=== PATIENT | female | born 1980 | race Caucasian/White ===

== ENCOUNTER → 2017-11-03 | Outpatient (CLI) | payer BC ==
[2017-11-03 14:21] LABS: Basophils % (A) 1 %; Eosinophils # (A) 0.2 k/uL (0-0.7); Eosinophils % (A) 2 %; HCT 40.8 % (34.0-46.0); HGB 13.6 gm/dL (11.4-16.0); Lymphocytes # (A) 1.8 k/uL (1.0-4.8); Lymphocytes % (A) 26 %; MCH 29.3 pg (25.0-35.0); MCHC 33.4 g/dL (31.0-37.0); MCV 87.9 fL (80.0-100.0); Mean Platelet Volume 7.3; Monocytes # (A) 0.3 k/uL (0-1.0); Monocytes % (A) 4 %; Neutrophils # (A) 4.6 k/uL (1.3-7.7); Neutrophils % (A) 66 %; Platelet Count 200 k/uL (150-450); RBC 4.64 m/uL (3.80-5.40); RDW 12.5 % (11.5-15.5); WBC 6.9 k/uL (3.8-10.6)
[2017-11-03 14:35] LABS: ALT 27 U/L (9-52); AST 20 U/L (14-36); Albumin 4.5 g/dL (3.5-5.0); Alkaline Phosphatase 45 U/L (38-126); Anion Gap 11 mmol/L; Blood Urea Nitrogen 17 mg/dL (7-17); Calcium 9.3 mg/dL (8.4-10.2); Carbon Dioxide 26 mmol/L (22-30); Chloride 103 mmol/L (98-107); Cholesterol 182 mg/dL (<200); Glucose 88 mg/dL (74-99); HDL Cholesterol 76 mg/dL (40-60); LDL Cholesterol,Calculated 98 mg/dL (0-99); Sodium 140 mmol/L (137-145); Total Bilirubin 0.4 mg/dL (0.2-1.3); Total Protein 6.8 g/dL (6.3-8.2); Triglycerides 40 mg/dL (<150)
== END | disposition home or self-care (01) ==
LOC: LABWHC1 14:07
PROVIDERS: ATTEND Nurse Practitioner Primary Care
DX: Z00.00 Encounter for general adult medical examination without abnormal findings (principal)
CPT/HCPCS: 36415; 80053; 80061; 82306; 84443; 85025

== ENCOUNTER → 2020-12-25 | Outpatient (CLI) | payer BC ==
--- NOTE | 2020-12-25 19:16 | MR ---
EXAMINATION TYPE: MR brain wo/w con DATE OF EXAM: 12/25/2020 COMPARISON: None HISTORY: No prior, [place] and double vision CONTRAST: Standard multiplanar, multisequence MRI departmental protocol utilizing 7ml mL intravenous Gadavist g adolinium contrast. Ventricles have normal size. There is no mass effect nor midline shift. There is no sign of intracran ial hemorrhage. There is no evidence of intracranial hemorrhage. Corpus callosum appears normal. Sella turcica is nor mal. Brainstem is intact. Diffusion images show no evidence of an acute infarct. Yee-white matter structures have fairly josr l signal pattern. There is no evidence of cerebral edema. Contrast images show no pathologic enhancement. There is normal enhancement of the venous sinuses. Op tic chiasm appears normal. Pituitary stalk is in the midline. There is no evidence of orbital mass. IMPRESSION: Negative MR scan of the brain.
== END | disposition home or self-care (01) ==
LOC: RADMRIMAIN 17:03
PROVIDERS: ATTEND Ophthalmology
DX: H53.2 Diplopia (principal); R51.9 Headache, unspecified
CPT/HCPCS: 70553; A9585

== ENCOUNTER → 2022-11-05 | Outpatient (CLI) | payer BC ==
--- NOTE | 2022-11-06 09:01 | MM ---
Reason for Exam: Screening (asymptomatic). Baseline mammogram. Patient History: Menarche at age 15. First Full-Term at age 24. Premenopausal. Paternal aunt had breast cancer. Mother had breast cancer at or over age 50. Last menstrual period: 10/17/2022 Risk Values: Judy 5 year model risk: 1.1%. NCI Lifetime model risk: 18.3%. Prior Study Comparison: Patient's first Mammogram. Tissue Density: The breast tissue is heterogeneously dense. This may lower the sensitivity of mammography. Findings: Analyzed By CAD. There is no suspicious group of microcalcifications or new suspicious mass in either breast. Asymmetric density upper central left breast 6.3 cm from the nipple. Additional views recommended. Overall Assessment: Incomplete: need additional imaging evaluation, BI-RAD 0 Management: Diagnostic Mammogram of the left breast. . Patient should continue monthly self-breast exams. A clinical breast exam by your physician is recommended on an annual basis. This exam should not preclude additional follow-up of suspicious palpable abnormalities. Note on Judy scores and lifetime risk: 1. A Judy score greater than 3% is considered moderate risk. If this is the case, consider specialist referral to assess eligibility for a risk reducing agent. 2. If overall lifetime risk for the development of breast cancer is 20% or higher, the patient may qualify for future screening with alternating mammogram and breast MRI. Electronically signed and approved by: Scar Temple M.D. Radiologis
== END | disposition home or self-care (01) ==
LOC: RADMAMWWP 09:56
PROVIDERS: ATTEND Family Medicine
DX: Z12.31 Encounter for screening mammogram for malignant neoplasm of breast (principal); Z80.3 Family history of malignant neoplasm of breast
CPT/HCPCS: 77063; 77067

== ENCOUNTER → 2022-11-07 | Outpatient (CLI) | payer BC ==
--- NOTE | 2022-11-07 10:20 | MM ---
Reason for Exam: Additional evaluation requested from abnormal screening. Last screening mammogram was performed less than 1 month ago. Patient History: Menarche at age 15. First Full-Term at age 24. Premenopausal. Patient has history of breast feeding. Paternal aunt had breast cancer. Paternal aunt had ovarian cancer at or over age 50. Mother had breast cancer at or over age 50. Risk Values: Judy 5 year model risk: 1.1%. NCI Lifetime model risk: 18.3%. Prior Study Comparison: 11/05/2022 Bilateral MG 3D screening mammo w/cad, [facility]. Tissue Density: Left: The breast tissue is heterogeneously dense. This may lower the sensitivity of mammography. Findings: Analyzed By CAD. Density in question appears less conspicuous on spot compression imaging. Precautionary six-month follow-up is recommended of the left breast. Overall Assessment: Probably benign, BI-RAD 3 Management: Diagnostic Mammogram of the left breast. . Results were given to the patient verbally at the time of exam. Patient should continue monthly self-breast exams. A clinical breast exam by your physician is recommended on an annual basis. This exam should not preclude additional follow-up of suspicious palpable abnormalities. Note on Judy scores and lifetime risk: 1. A Judy score greater than 3% is considered moderate risk. If this is the case, consider specialist referral to assess eligibility for a risk reducing agent. 2. If overall lifetime risk for the development of breast cancer is 20% or higher, the patient may qualify for future screening with alternating mammogram and breast MRI. Electronically signed and approved by: Scar Temple M.D. Radiologis
== END | disposition home or self-care (01) ==
LOC: RADMAMWWP 09:34
PROVIDERS: ATTEND Family Medicine
DX: R92.8 Other abnormal and inconclusive findings on diagnostic imaging of breast (principal); Z80.3 Family history of malignant neoplasm of breast; Z80.41 Family history of malignant neoplasm of ovary
CPT/HCPCS: 77061; 77065

== ENCOUNTER → 2023-05-13 | Outpatient (CLI) | payer BC ==
--- NOTE | 2023-05-13 11:43 | MM ---
Reason for Exam: Follow-up at short interval from prior study. Last screening mammogram was performed 6 month(s) ago. Patient History: Menarche at age 15. First Full-Term at age 24. Premenopausal. Patient has history of breast feeding. Paternal aunt had breast cancer. Paternal aunt had ovarian cancer at or over age 50. Mother had breast cancer at or over age 50. Risk Values: Judy 5 year model risk: 1.1%. NCI Lifetime model risk: 18.3%. Prior Study Comparison: 11/05/2022 Bilateral MG 3D screening mammo w/cad, [facility]. 11/07/2022 Left MG 3D work up w/cad , [facility]. Tissue Density: Left: The breast tissue is heterogeneously dense. This may lower the sensitivity of mammography. Findings: Analyzed By CAD. Focal asymmetry approximately 11 to 12:00 position appears similar compared to 6 months ago. Dense tissue laterally also appears similar compared to 6 months ago. Further ultrasound evaluation recommended. Overall Assessment: Incomplete: need additional imaging evaluation, BI-RAD 0 Management: Diagnostic Breast Ultrasound of the left breast. Targeted to the 11 to 3:00 position. Electronically signed and approved by: John Harrell M.D. Radiologist
--- NOTE | 2023-05-13 12:22 | USB ---
Reason for Exam: Follow-up at short interval from prior study. Patient History: Menarche at age 15. First Full-Term at age 24. Premenopausal. Patient has history of breast feeding. Paternal aunt had breast cancer. Paternal aunt had ovarian cancer at or over age 50. Mother had breast cancer at or over age 50. Risk Values: Judy 5 year model risk: 1.1%. NCI Lifetime model risk: 18.3%. Technique: Method: Targeted. Prior Study Comparison: 11/05/2022 Bilateral MG 3D screening mammo w/cad, [facility]. 11/07/2022 Left MG 3D work up w/cad [facility]. Findings: The upper section of the breast of the left breast, the lateral section of the breast of the left breast, the axilla of the left breast and the retroareolar of the left breast were scanned. Targeted ultrasound left breast 11:00 to 3:00 position including the subareolar region and axilla. * At the 1:00 position, 5 cm from the nipple, there is a benign 3 mm cyst. * At the 1:00 position, 5 cm from the nipple, located more posteriorly, there is an indeterminate oval, circumscribed hypoechoic lesion measuring 1.0 x 0.7 x 0.6 cm. Possible debris-filled cyst versus solid mass, favored benign such as fibroadenoma. Six-month follow-up to reassess. * At the 2:00 position, 1 cm from the nipple, a similar but smaller oval hypoechoic areas present measuring 6 x 3 x 3 mm. Six-month follow-up to reassess. * At the 3:00 position, 8 cm from the nipple, there is a benign 1.4 cm cyst. An adjacent benign 5 mm cyst. * No other solid or cystic lesion or axillary adenopathy. Overall Assessment: Probably benign, BI-RAD 3 Management: Diagnostic Breast Ultrasound of the left breast in 6 months. For the 1:00 and 2:00 indeterminate but favored benign areas. A clinical breast exam by your physician is recommended on an annual basis and results should be correlated with mammographic findings. This exam should not preclude additional follow-up of suspicious palpable abnormalities. Results were given to the patient verbally at the time of exam. Electronically signed and approved by: John Harrell M.D. Radiologist
== END | disposition home or self-care (01) ==
LOC: RADMAMWWP 11:17
PROVIDERS: ATTEND Family Medicine
DX: R92.332 Mammographic heterogeneous density, left breast (principal); Z80.3 Family history of malignant neoplasm of breast
CPT/HCPCS: 77061; 77065

== ENCOUNTER → 2023-11-24 | Outpatient (CLI) | payer BC ==
--- NOTE | 2023-11-24 09:54 | USB ---
Reason for Exam: Follow-up at short interval from prior study. Patient History: Menarche at age 15. First Full-Term at age 24. Premenopausal. Patient has history of breast feeding. Paternal aunt had breast cancer. Paternal aunt had ovarian cancer at or over age 50. Mother had breast cancer at or over age 50. Risk Values: Judy 5 year model risk: 1.2%. NCI Lifetime model risk: 18.2%. Technique: Method: Targeted. Prior Study Comparison: 11/05/2022 Bilateral MG 3D screening mammo w/cad, [facility]. 11/07/2022 Left MG 3D work up w/cad LT, [facility]. 05/13/2023 Left MG 3D diag mammo w/cad LT, [facility]. Findings: The upper section of the breast of the left breast, the axilla of the left breast and the retroareolar of the left breast were scanned. Targeted ultrasound left breast 1:00 and 2:00 positions including scanning of the subareolar region and axilla. At the 1:00 position, 5 cm from the nipple, there is redemonstration of a vague hypoechoic area measuring 7 x 7 x 5 mm (versus 10 x 7 x 6 mm, previously). An additional short interval follow-up can be performed. The previously seen indeterminate 6 mm lesion at the 2:00 position is no longer identified. No additional solid or cystic lesion or axillary lymphadenopathy. Overall Assessment: Probably benign, BI-RAD 3 Management: Diagnostic Mammogram of both breasts in 6 months. Diagnostic Breast Ultrasound of the left breast. Total one-year follow-up left breast and annual exam of the right breast. Ultrasound follow-up for the left breast 1:00 area to assess for one-year of stability. A clinical breast exam by your physician is recommended on an annual basis and results should be correlated with mammographic findings. This exam should not preclude additional follow-up of suspicious palpable abnormalities. Results were given to the patient verbally at the time of exam. Electronically signed and approved by: John Harrell M.D. Radiologist
== END | disposition home or self-care (01) ==
LOC: RADUSWWP 09:29
PROVIDERS: ATTEND Family Medicine
DX: R92.8 Other abnormal and inconclusive findings on diagnostic imaging of breast (principal); Z80.3 Family history of malignant neoplasm of breast

== ENCOUNTER → 2024-06-21 | Outpatient (CLI) | payer BC ==
--- NOTE | 2024-06-21 08:51 | USB ---
Reason for Exam: Additional evaluation requested from prior study. Patient History: Menarche at age 15. First Full-Term at age 24. Premenopausal. Patient has history of breast feeding. Paternal aunt had breast cancer. Paternal aunt had ovarian cancer at or over age 50. Mother had breast cancer at or over age 50. Risk Values: Judy 5 year model risk: 1.2%. NCI Lifetime model risk: 18.2%. Technique: Method: Targeted. Prior Study Comparison: 11/05/2022 Bilateral MG 3D screening mammo w/cad, [facility]. 11/07/2022 Left MG 3D work up w/cad LT, [facility]. 05/13/2023 Left MG 3D diag mammo w/cad LT, [facility]. Findings: The upper outer quadrant of both breasts, the axilla of both breasts and the retroareolar of both breasts were scanned. Technique utilized:US breast limited BILAT Image; Ultrasound imaging of: All 4 quadrants, the retroareolar region and axilla. Right breast 10:00 8 cm from nipple anechoic cyst as well as 11:00 8 cm nipple measuring up to 2.1 cm with few thin septations/debris. Compatible with mildly complicated cyst. Anechoic cyst at 3:00 9 cm and measuring up to 1.7 cm. Left breast 1:00 5 cm nipple lesion seen on prior not significantly changed to slightly decreased in size now measuring 9 x 4 mm previously 9 x 5 mm on 11/24/2023 measuring up to 10 x 5 mm on 05/13/2023. Overall Assessment: Benign, BI-RAD 2 Management: Screening Mammogram of both breasts in 1 year. A clinical breast exam by your physician is recommended on an annual basis and results should be correlated with mammographic findings. This exam should not preclude additional follow-up of suspicious palpable abnormalities. Results were given to the patient verbally at the time of exam. [facility], , 06/21/2024 8:47 AM. Electronically signed and approved by: rEwin Garcia DO
--- NOTE | 2024-06-23 07:47 | MM ---
Reason for Exam: Additional evaluation requested from prior study. Last mammogram was performed 1 year(s) and 7 month(s) ago. Patient History: Menarche at age 15. First Full-Term at age 24. Premenopausal. Patient has history of breast feeding. Paternal aunt had breast cancer. Paternal aunt had ovarian cancer at or over age 50. Mother had breast cancer at or over age 50. Risk Values: Judy 5 year model risk: 1.2%. NCI Lifetime model risk: 18.2%. Tissue Density: The breasts are heterogeneously dense, which may obscure small masses. Findings: Analyzed By CAD. Right breast mass upper outer quadrant 2.8 cm from the nipple on CC view measuring 20 mm. Left breast mass 10 cm from the nipple measuring 21 mm upper outer quadrant. Overall Assessment: Incomplete: need additional imaging evaluation, BI-RAD 0 Management: Diagnostic Breast Ultrasound of both breasts. Results were given to the patient verbally at the time of exam. Patient should continue monthly self-breast exams. A clinical breast exam by your physician is recommended on an annual basis. This exam should not preclude additional follow-up of suspicious palpable abnormalities. Note on Judy scores and lifetime risk: 1. A Judy score greater than 3% is considered moderate risk. If this is the case, consider specialist referral to assess eligibility for a risk reducing agent. 2. If overall lifetime risk for the development of breast cancer is 20% or higher, the patient may qualify for future screening with alternating mammogram and breast MRI. [facility], , 06/21/2024 7:40 AM. Electronically signed and approved by: Erwin Garcia DO
== END | disposition home or self-care (01) ==
LOC: RADMAMWWP 07:13
PROVIDERS: ATTEND Family Medicine
DX: R92.8 Other abnormal and inconclusive findings on diagnostic imaging of breast (principal); R92.333 Mammographic heterogeneous density, bilateral breasts; N63.11 Unspecified lump in the right breast, upper outer quadrant; N63.21 Unspecified lump in the left breast, upper outer quadrant; Z80.3 Family history of malignant neoplasm of breast; R92.2 Inconclusive mammogram
CPT/HCPCS: 77062; 77066